=== PATIENT | female | born 1980 | race Caucasian/White ===

== ENCOUNTER 2017-04-03 23:57 | Emergency (ER) | payer OTHER ==
[~2017-04-03] VITALS: Ht 165.1 cm; Wt 76.4 kg
[2017-04-04] MEDS ORDERED: ADDE20CA3 PO (00:13)
[2017-04-04] MEDS ORDERED: ADDE12.5 PO (00:13)
[2017-04-04] MEDS ORDERED: VALA500T2 PO (00:13)
[2017-04-04 05:37] VITALS: BP 157/88
--- NOTE | 2017-04-04 07:51 | REP ---
Left foot four views : There is no fracture or dislocation. Mineralization and joint spaces are normal. There are no calcifications or foreign bodies. Impression: Negative foot . Signed by Bryn Avelar MD 04/04/2017 07:43 A
== END 2017-04-04 05:56 | disposition home or self-care (01) ==
LOC: M ED 23:57
DX: S90.32XA Contusion of left foot, initial encounter (principal); W22.8XXA Striking against or struck by other objects, initial encounter; Y92.019 Unspecified place in single-family (private) house as the place of occurrence of the external cause; Y93.9 Activity, unspecified; Y99.8 Other external cause status; Z79.899 Other long term (current) drug therapy; Z88.0 Allergy status to penicillin; Z88.1 Allergy status to other antibiotic agents

== ENCOUNTER → 2017-08-16 | Outpatient (CLI) | payer OTHER ==
[~2017-08-16] MED LIST: ADDE12.5 PO; ADDE20CA3 PO; VALA500T2 PO
== END ==
LOC: M RAD 10:26
PROVIDERS: ATTEND Physician Assistant
DX: N63.0 Unspecified lump in unspecified breast (principal)

== ENCOUNTER 2018-06-27 19:43 | Emergency (ER) | payer OTHER ==
[2018-06-27] MEDS: IBUPROFEN 600 MG TAB PO (20:45)
== END 2018-06-27 20:56 | disposition home or self-care (01) ==
LOC: M ED 19:43
DX: S50.12XA Contusion of left forearm, initial encounter (principal); W23.0XXA Caught, crushed, jammed, or pinched between moving objects, initial encounter; Y92.89 Other specified places as the place of occurrence of the external cause; Y99.1 Military activity; F90.9 Attention-deficit hyperactivity disorder, unspecified type; Z88.0 Allergy status to penicillin; Z88.1 Allergy status to other antibiotic agents; Z79.899 Other long term (current) drug therapy
CPT/HCPCS: 73090

== ENCOUNTER 2019-02-12 14:34 | Emergency (ER) | payer OTHER ==
[~2019-02-12] VITALS: Ht 162.6 cm; Wt 77.3 kg
[~2019-02-12 14:34] MED LIST changes: +IBUP-1022 PO; -VALA500T2 PO; +VALA500T5 PO
[2019-02-12] MEDS ORDERED: LOW-1TAB2 PO (14:54)
[2019-02-12] MEDS ORDERED: NORCO, ANEXSIA 5/325MG TABLET (HYDROcodone/ACETAMINOPHEN) PO ONE (18:00)
--- NOTE | 2019-02-12 18:19 | REP ---
Clinical: Trauma . Technique: Axial noncontrast images from the skull base to the thoracic inlet with coronal and sagittal re-formations Findings: Normal alignment is maintained. Cervical vertebral bodies including transverse processes and spinous processes are intact and there is no evidence for acute fracture / compression injury or subluxation. Spinal canal is patent. Posterior elements are intact. Paravertebral soft tissues are normal. Impression: Normal noncontrast cervical spine CT. No evidence for acute pathology or trauma/injury. Electronically Signed by Clinton Palmer MD 02/12/2019 06:10 P
[2019-02-12] MEDS ORDERED: NAPR-837 PO (18:49)
--- NOTE | 2019-02-12 18:52 | REP ---
Clinical: Trauma . Comparison: None . Technique: PA and lateral. Findings: The mediastinum and cardiac silhouette are normal. The lung mcginnis are clear and without acute consolidation, effusion, or pneumothorax. The skeletal structures are intact and normal. Impression: 1. No acute cardiopulmonary process. Electronically Signed by Clinton Palmer MD 02/12/2019 06:45 P
[2019-02-12 18:54] VITALS: BP 143/80
--- NOTE | 2019-02-13 06:04 | ECGEPIP ---
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
== END 2019-02-12 19:09 | disposition home or self-care (01) ==
LOC: EDBD 14:34 → M ED 14:34
DX: S16.1XXA Strain of muscle, fascia and tendon at neck level, initial encounter (principal); V43.52XA Car driver injured in collision with other type car in traffic accident, initial encounter; Y92.410 Unspecified street and highway as the place of occurrence of the external cause; Z79.899 Other long term (current) drug therapy; Z79.3 Long term (current) use of hormonal contraceptives